=== PATIENT | female | born 1975 | race Caucasian/White ===

== ENCOUNTER 2018-10-14 09:47 | Emergency (ER) | payer MEDICAID ==
[2018-10-14 10:01] VITALS: BMI 40.6
[2018-10-14 10:04] VITALS: BP 138/90; PULSE 80; RESP 20; TEMP 98.3; O2SAT 100
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
== END 2018-10-14 11:56 | disposition home or self-care (01) ==
LOC: C.ER 09:47
DX: M25.562 Pain in left knee (principal)